=== PATIENT | male | born 1985 | race Two or more races ===

== ENCOUNTER 2019-09-22 02:11 | Emergency (ER) | payer SELFPAY ==
[~2019-09-22] VITALS: Ht 170.2 cm; Wt 65.9 kg
[~2019-09-22 02:11] MED LIST: NOCURR
[2019-09-22] MEDS ORDERED: KETOROLAC TROMETHAMINE 30 MG/ML VIAL IM ONE (02:45)
[2019-09-22] MEDS ORDERED: ACETAMINOPHEN 325 MG TABLET PO ONE (02:45)
[2019-09-22 03:35] LABS: INFLUENZA TYPE A POSITIVE FOR TYPE A (NEGATIVE); INFLUENZA TYPE B NEGATIVE FOR TYPE B (NEGATIVE)
[2019-09-22 04:17] VITALS: BP 121/69
== END 2019-09-22 04:30 | disposition home or self-care (01) ==
LOC: EMS 02:13
DX: J11.1 Influenza due to unidentified influenza virus with other respiratory manifestations (principal); M79.10 Myalgia, unspecified site
CPT/HCPCS: 71046; 87804; 96372; 99284; J1885

== ENCOUNTER 2022-11-19 03:17 | Emergency (ER) | payer MEDICAID ==
[~2022-11-19] VITALS: Ht 170.2 cm; Wt 67.3 kg
[2022-11-19 03:33] LABS: COVID AG,FIA SOURCE NASAL SWAB
[2022-11-19 03:52] LABS: INFLUENZA TYPE A NEGATIVE FOR TYPE A (NEGATIVE); INFLUENZA TYPE B NEGATIVE FOR TYPE B (NEGATIVE)
[2022-11-19] MEDS ORDERED: LORATADINE/PSEUDOEPHED SULF 5-120 MG SR TABLET PO ONE (06:30)
[2022-11-19 07:27] VITALS: BP 122/71
== END 2022-11-19 07:38 | disposition home or self-care (01) ==
LOC: EMS 03:19
DX: J06.9 Acute upper respiratory infection, unspecified (principal)
CPT/HCPCS: 87804; 99283